=== PATIENT | female | born 1970 | race Caucasian/White ===

== ENCOUNTER 2020-11-18 12:26 | Observation (INO) ==
[2020-11-18 15:31] LABS: Bilirubin,Urine Small (Negative); Blood,Urine Large (Negative); Clarity,Urine Clear (Clear); Color,Urine Dark-Yellow (Yellow); Glucose,Urine (UA) Normal (Normal); Hyaline Casts,Urine Many per lpf (None Seen); Ketones,Urine Negative (Negative); Leukocyte Esterase,Urine Negative (Negative); Mucus,Urine Few per lpf (None-Few); Nitrite,Urine Negative (Negative); PH,Urine 6.5 pH Units (5.0-8.0); Protein,Urine 100 mg/dL (Neg-Trace); RBC,Urine 0-3 per hpf (0-3); Renal Epithelial Cells,Urine Few per hpf (None-Few); Squamous Epithelial Cell,Urine Few per hpf (None-Few); Transitional Epi Cells,Urine Few per hpf (None-Few); Urobilinogen,Urine >=8.0 mg/dL (Normal)
[2020-11-18] MEDS ORDERED: Orphenadrine 60 MG/2 ML VIAL IM ONE (16:40)
[2020-11-18] MEDS ORDERED: methylPREDNISolone 125 MG/2 ML VIAL IM ONE (16:41)
[2020-11-18 16:59] LABS: Basophils # 0.1 K/mcL (0.0-0.2); Basophils % 0.5 %; Eosinophils # 0.1 K/mcL (0.0-0.6); Eosinophils % 0.7 %; Hematocrit 42.9 % (35.3-44.9); Hemoglobin 14.4 g/dL (11.5-15.4); Immature Granulocytes % 0.4 % (0-4); Lymphocytes # 1.8 K/mcL (0.6-4.6); Lymphocytes % 14.5 %; Mean Corpuscular HGB Conc 33.6 g/dL (31.6-35.5); Mean Corpuscular Hemoglobin 28.8 pg (28.0-33.3); Mean Corpuscular Volume 85.8 fL (83.0-100.0); Mean Platelet Volume 10.8 fL (9.4-12.4); Monocytes # 0.8 K/mcL (0.0-1.3); Monocytes % 6.6 %; Neutrophils # 9.4 K/mcL (1.6-8.9); Platelet Count 278 K/mcL (140-400); Red Cell Distribution Width 12.9 % (11.5-14.5); Segmented Neutrophils % 77.3 %; White Blood Count 12.2 K/mcL (4.3-11.1)
[2020-11-18 17:18] LABS: Alanine Aminotransferase 276 Units/L (7-52); Albumin 4.1 g/dL (3.5-5.7); Albumin/Globulin Ratio 1.1 (1.1-2.2); Alkaline Phosphatase 252 Units/L (34-104); Aspartate Amino Transferase 387 Units/L (13-39); BUN/Creatinine Ratio 13 (6-26); Bilirubin,Direct 1.6 mg/dL (0.0-0.2); Bilirubin,Indirect 0.7 mg/dL (0.0-1.0); Bilirubin,Total 2.3 mg/dL (0.3-1.0); Blood Urea Nitrogen 13 mg/dL (6-20); Calcium 9.5 mg/dL (8.6-10.3); Carbon Dioxide 22 mEq/L (23-29); Chloride 99 mEq/L (98-107); Globulin 3.6 g/dL (2.4-3.5); Glucose 114 mg/dL (70-105); Lipase 18 Units/L (11-82); Osmolality,Calculated 277 (280-300); Potassium 2.6 mEq/L (3.5-5.1); Sodium 133 mEq/L (136-145); Total Protein 7.7 g/dL (6.4-8.9); eGFR For African Americans > 60 (> 60); eGFR For Non-African Americans 59 (> 60)
[2020-11-18 17:54] LABS: Troponin I < 0.03 ng/mL (< 0.04)
[2020-11-18] MEDS ORDERED: Melatonin 3 MG TABLET PO PRN (21:08)
[2020-11-18] MEDS ORDERED: Ondansetron 4 MG/2 ML VIAL IVP PRN (21:08)
[2020-11-18] MEDS ORDERED: Naloxone 0.4 MG/ML INJ IVP PRN (21:08)
[2020-11-19] MEDS ORDERED: 0.9 % Sodium Chloride 1,000 ML IVC ONE (02:27)
[2020-11-19] MEDS ORDERED: ALPRAZolam 1 MG TABLET PO PRN (03:13)
[2020-11-19] MEDS: QUEtiapine Fumarate 100 MG TABLET PO SCH ×2 (06:41→20:13)
[2020-11-19 07:59] LABS: Prothrombin Time 11.8 Seconds (9.4-12.1)
[2020-11-19 08:02] LABS: Basophils % 0.1 %; Hematocrit 38.6 % (35.3-44.9); Immature Granulocytes % 0.5 % (0-4); Lymphocytes # 0.7 K/mcL (0.6-4.6); Mean Corpuscular HGB Conc 33.2 g/dL (31.6-35.5); Mean Corpuscular Hemoglobin 28.8 pg (28.0-33.3); Mean Corpuscular Volume 86.7 fL (83.0-100.0); Mean Platelet Volume 11.5 fL (9.4-12.4); Monocytes # 0.1 K/mcL (0.0-1.3); Monocytes % 1.6 %; Neutrophils # 7.4 K/mcL (1.6-8.9); Platelet Count 266 K/mcL (140-400); Red Blood Count 4.45 M/mcL (3.82-4.97); Red Cell Distribution Width 12.9 % (11.5-14.5); Segmented Neutrophils % 89.8 %; White Blood Count 8.2 K/mcL (4.3-11.1)
[2020-11-19 08:03] LABS: Activated Partial Thrombo Time 33.1 Seconds (26.0-36.0)
[2020-11-19 08:35] LABS: Hepatitis B Surface Antigen Nonreactive (Nonreactive)
[2020-11-19 08:39] LABS: Alanine Aminotransferase 217 Units/L (7-52); Albumin 3.8 g/dL (3.5-5.7); Albumin/Globulin Ratio 1.6 (1.1-2.2); Alkaline Phosphatase 255 Units/L (34-104); Aspartate Amino Transferase 237 Units/L (13-39); BUN/Creatinine Ratio 16 (6-26); Bilirubin,Direct 0.2 mg/dL (0.0-0.2); Bilirubin,Indirect 0.4 mg/dL (0.0-1.0); Bilirubin,Total 0.6 mg/dL (0.3-1.0); Blood Urea Nitrogen 12 mg/dL (6-20); Calcium 9.1 mg/dL (8.6-10.3); Carbon Dioxide 22 mEq/L (23-29); Chloride 103 mEq/L (98-107); Globulin 2.4 g/dL (2.4-3.5); Glucose 169 mg/dL (70-105); Osmolality,Calculated 286 (280-300); Phosphorous 2.3 mg/dL (2.7-4.5); Sodium 136 mEq/L (136-145); Total Protein 6.2 g/dL (6.4-8.9); Troponin I < 0.03 ng/mL (< 0.04); eGFR For African Americans > 60 (> 60); eGFR For Non-African Americans > 60 (> 60)
[2020-11-19 08:44] LABS: Hemoglobin 12.8 g/dL (11.5-15.4)
[2020-11-19 09:02] LABS: Hepatitis B Core IgM Nonreactive (Nonreactive); Hepatitis C Virus Antibody Nonreactive (Nonreactive)
[2020-11-19 09:03] LABS: Hepatitis A Antibody IgM Nonreactive (Nonreactive)
[2020-11-19 13:02] LABS: BUN/Creatinine Ratio 15 (6-26); Blood Urea Nitrogen 11 mg/dL (6-20); Calcium 9.2 mg/dL (8.6-10.3); Carbon Dioxide 23 mEq/L (23-29); Chloride 104 mEq/L (98-107); Glucose 142 mg/dL (70-105); Osmolality,Calculated 284 (280-300); Potassium 3.2 mEq/L (3.5-5.1); Sodium 136 mEq/L (136-145); eGFR For African Americans > 60 (> 60); eGFR For Non-African Americans > 60 (> 60)
[2020-11-19] MEDS ORDERED: Ipratropium/Albuterol Neb 3 ML IH PRN (18:07)
[2020-11-19] MEDS ORDERED: Topiramate 100 MG TABLET PO SCH (20:00)
[2020-11-19] MEDS: hydrOXYzine pamoate 25 MG CAPSULE PO SCH (20:14)
[2020-11-19] MEDS: Pregabalin 75 MG CAPSULE PO SCH (20:14)
[2020-11-19] MEDS ORDERED: traZODone 50 MG TABLET PO SCH (21:00)
[2020-11-20] MEDS ORDERED: Ringers Solution, Lactated 500 ML IVC ONE ×2 (01:00→01:38)
[2020-11-20] MEDS ORDERED: Ringers Solution, Lactated 1,000 ML IVC ONE ×2 (03:39→05:29)
[2020-11-20] MEDS ORDERED: Ringers Solution, Lactated 1,000 ML ONE ×2 (03:41→05:30)
[2020-11-20 04:59] LABS: Basophils % 0.4 %; Eosinophils # 0.1 K/mcL (0.0-0.6); Eosinophils % 1.1 %; Hematocrit 31.1 % (35.3-44.9); Immature Granulocytes % 0.4 % (0-4); Lymphocytes # 1.9 K/mcL (0.6-4.6); Lymphocytes % 25.8 %; Mean Corpuscular HGB Conc 33.4 g/dL (31.6-35.5); Mean Corpuscular Hemoglobin 29.5 pg (28.0-33.3); Mean Corpuscular Volume 88.4 fL (83.0-100.0); Mean Platelet Volume 11.5 fL (9.4-12.4); Monocytes # 0.6 K/mcL (0.0-1.3); Monocytes % 8.3 %; Neutrophils # 4.6 K/mcL (1.6-8.9); Platelet Count 218 K/mcL (140-400); Red Blood Count 3.52 M/mcL (3.82-4.97); Red Cell Distribution Width 13.2 % (11.5-14.5); White Blood Count 7.2 K/mcL (4.3-11.1)
[2020-11-20 05:06] LABS: Hemoglobin 10.4 g/dL (11.5-15.4)
[2020-11-20 05:18] LABS: Alanine Aminotransferase 127 Units/L (7-52); Albumin/Globulin Ratio 1.2 (1.1-2.2); Alkaline Phosphatase 169 Units/L (34-104); Aspartate Amino Transferase 111 Units/L (13-39); BUN/Creatinine Ratio 20 (6-26); Bilirubin,Total 0.4 mg/dL (0.3-1.0); Blood Urea Nitrogen 13 mg/dL (6-20); Calcium 8.4 mg/dL (8.6-10.3); Carbon Dioxide 23 mEq/L (23-29); Chloride 108 mEq/L (98-107); Globulin 2.5 g/dL (2.4-3.5); Glucose 104 mg/dL (70-105); Osmolality,Calculated 288 (280-300); Potassium 2.9 mEq/L (3.5-5.1); Sodium 139 mEq/L (136-145); Total Protein 5.5 g/dL (6.4-8.9); eGFR For African Americans > 60 (> 60); eGFR For Non-African Americans > 60 (> 60)
[2020-11-20] MEDS ORDERED: CARIPRAZINE HCL 6 MG PO SCH (09:00)
[2020-11-20] MEDS ORDERED: Venlafaxine XR (24 HR) 150 MG CAP.ER.24H PO SCH (09:00)
[2020-11-20] MEDS ORDERED: Loratadine 10 MG TABLET PO SCH (09:00)
[2020-11-20] MEDS: Pregabalin 75 MG CAPSULE PO SCH (09:09)
[2020-11-20] MEDS: hydrOXYzine pamoate 25 MG CAPSULE PO SCH (09:14)
[2020-11-20 12:05] VITALS: BP 92/72; PULSE 80; TEMP 98.1; O2SAT 93
== END 2020-11-20 15:08 | disposition home or self-care (01) ==
LOC: 4WAOSI 12:26 → EMEROOARM 12:26 → SUATTDRO 21:24 → 4WAOSI 11-19 01:37
PROVIDERS: ADMIT Family Medicine; ATTEND Internal Medicine